=== PATIENT | male | born 1955 | race Caucasian/White ===

== ENCOUNTER 2018-12-10 08:32 | Day surgery (SDC) | payer OTHER ==
[~2018-12-10] VITALS: Ht 182.9 cm; Wt 132.8 kg
[~2018-12-10 08:32] MED LIST: AMLO5 PO; B-121000 MC2 PO; CYCL10 PO; FOLI1 PO; Metformin HCl1000 MG PO; NAPR375 PO; Percocet 5-3251 EACH PO; Prinivil10 MG PO; VITAMIN D32000 UNIT PO
--- NOTE | 2018-12-10 11:11 | NUR ---
12/10/18 1111 Alice Roper PATIENT REFUSES MULTIPLE OFFERS OF PO FLUIDS.
== END 2018-12-10 11:14 | disposition home or self-care (01) ==
LOC: ORSCSDS 08:32
PROVIDERS: Internal Medicine Gastroenterology
PROC: 0DJD8ZZ Inspection of Lower Intestinal Tract, Via Natural or Artificial Opening Endoscopic (ICD-10-PCS; principal; 2018-12-10 10:15)
PROC: 0DB58ZX Excision of Esophagus, Via Natural or Artificial Opening Endoscopic, Diagnostic (ICD-10-PCS; principal; 2018-12-10 10:15)
DX: K22.70 Barrett's esophagus without dysplasia (principal); K20.8 Other esophagitis; K44.9 Diaphragmatic hernia without obstruction or gangrene; Z12.11 Encounter for screening for malignant neoplasm of colon; K57.30 Diverticulosis of large intestine without perforation or abscess without bleeding; K64.1 Second degree hemorrhoids; I10 Essential (primary) hypertension; E11.9 Type 2 diabetes mellitus without complications; E03.9 Hypothyroidism, unspecified; G47.33 Obstructive sleep apnea (adult) (pediatric); E66.01 Morbid (severe) obesity due to excess calories; Z68.39 Body mass index [BMI] 39.0-39.9, adult; Z79.899 Other long term (current) drug therapy
CPT/HCPCS: 43239; G0121; 82947; 88305; J2250; J2704; J7120